=== PATIENT | male | born 1990 | race Caucasian/White ===

== ENCOUNTER 2018-12-08 16:43 | Emergency (ER) | payer SELFPAY ==
[~2018-12-08] VITALS: Ht 180.3 cm; Wt 98.9 kg
[2018-12-08 16:58] VITALS: BP 134/63
[2018-12-08] MEDS ORDERED: CEPHALEXIN 250 MG CAP PO ONE (19:15)
[2018-12-08] MEDS ORDERED: SULFAMETHOX W/TRIMETH(800/160MG) DS TAB PO ONE (19:15)
[2018-12-08] MEDS ORDERED: cefTRIAXone SOD 1,000 MG VL IM ONE (19:15)
== END 2018-12-08 20:00 | disposition home or self-care (01) ==
LOC: ER 16:46
DX: L03.114 Cellulitis of left upper limb (principal); F11.10 Opioid abuse, uncomplicated
CPT/HCPCS: 96372; 99283; J0696

== ENCOUNTER 2019-04-02 13:26 | Emergency (ER) | payer SELFPAY ==
[~2019-04-02] VITALS: Ht 180.3 cm; Wt 99.8 kg
[2019-04-02 14:01] VITALS: BP 132/77
[2019-04-02] MEDS ORDERED: ACETAMINOPHEN 500 MG TAB PO ONE (17:15)
== END 2019-04-02 17:36 | disposition home or self-care (01) ==
LOC: ER 13:26
DX: S05.32XA Ocular laceration without prolapse or loss of intraocular tissue, left eye, initial encounter (principal); F17.210 Nicotine dependence, cigarettes, uncomplicated; V43.52XA Car driver injured in collision with other type car in traffic accident, initial encounter; Y93.89 Activity, other specified; Y99.8 Other external cause status; Y92.410 Unspecified street and highway as the place of occurrence of the external cause
CPT/HCPCS: 70450

== ENCOUNTER 2022-04-03 00:53 | Emergency (ER) | payer BC, MEDICAID ==
[~2022-04-03] VITALS: Ht 177.8 cm; Wt 124.7 kg
[2022-04-03 03:37] VITALS: BP 104/61
== END 2022-04-03 05:28 ==
LOC: ER 00:53
DX: S16.1XXA Strain of muscle, fascia and tendon at neck level, initial encounter (principal); R51.9 Headache, unspecified; F17.210 Nicotine dependence, cigarettes, uncomplicated; V49.9XXA Car occupant (driver) (passenger) injured in unspecified traffic accident, initial encounter; Y93.89 Activity, other specified; Y92.410 Unspecified street and highway as the place of occurrence of the external cause; Y99.8 Other external cause status
CPT/HCPCS: 70450; 71250; 72125